=== PATIENT | male | born 1980 | race Caucasian/White ===

== ENCOUNTER 2017-02-08 19:01 | Outpatient (CLI) | payer OTHER ==
--- NOTE | 2017-02-09 12:17 | Ultrasound Report ---
COMPLETE ABDOMINAL ULTRASOUND: 02/08/2017 CLINICAL INDICATION: Periumbilical pain. TECHNIQUE: Real-time scanning was performed with customer development representative static images obtained. FINDINGS: Ultrasound of the abdomen was performed. The liver is echogenic, measuring 19 cm. No foc al parenchymal lesion is seen. The common bile duct measures 3 mm. The gallbladder is normal. The pancreas is poorly visualized. The right kidney measures 13.1 cm, and appears unremarkable. The lef t kidney measures 11.8 cm, and demonstrates a 1.6 cm cyst. The spleen measures 12.9 cm, and demonstr ates normal echotexture. The abdominal aorta is normal in caliber. The inferior vena cava is poorly visualized. No free fluid is present. Scanning of the periumbilical region demonstrates a 2.5 x 2. 2 x 1.6 cm fluid collection with surrounding induration, likely representing a small abscess. The pa tient states that he is on antibiotics. IMPRESSION: 1. ENLARGED, ECHOGENIC LIVER, LIKELY REPRESENTING FATTY INFILTRATION. 2. A 2.5 CM COLLECTION IN THE PERIUMBILICAL REGION, LIKELY REPRESENTING A SMALL ABSCESS. JOB #: [id number] EXT JOB #:[id number]
== END 2017-02-08 19:02 | disposition home or self-care (01) ==
LOC: DI 19:01
PROVIDERS: ATTEND Family Medicine
DX: R10.33 Periumbilical pain (principal)
CPT/HCPCS: 76700